=== PATIENT | female | born 2000 | race Caucasian/White ===

== ENCOUNTER 2021-01-16 12:39 | Emergency (ER) | payer SELFPAY ==
[~2021-01-16] VITALS: Ht 162.5 cm; Wt 64.3 kg
--- NOTE | 2021-01-16 12:51 | ED Abdominal Pain ---
General Chief Complaint: Abdominal/GI Problems Stated Complaint: ABD PAIN; NAUSEA History of Present Illness Date Seen by Provider: Jan 16, 2021 Time Seen by Provider: 12:46 Initial Comments 20-year-old female presents with some mild right-sided abdominal pain. Its more in the mid abdomen. It has been coming and going since yesterday evening. She is mildly nauseated. She reports she had a normal bowel movement last night. No vomiting. No fevers or chills. She denies any urinary symptoms. Pain does not radiate. Patient does report that it is close in time for her to start her menstrual cycle no other systemic complaints Allergies and Home Medications Allergies Coded Allergies: No Known Drug Allergies (Unverified , 01/16/21) Patient Home Medication List Home Medication List Reviewed: Yes Review of Systems Review of Systems Constitutional: No chills, No fever Cardiovascular: Denies Chest Pain, Denies Lightheadedness Gastrointestinal: Abdominal Pain (right sided ); Denies Diarrhea; Nausea; Denies Vomiting Genitourinary: Denies Burning, Denies Drainage, Denies Flank Pain Musculoskeletal: No back pain Skin: no symptoms reported Psychiatric/Neurological: No Symptoms Reported Endocrine: No Symptoms Reported Hematologic/Lymphatic: No Symptoms Reported Past Gueivys-Snwluh-Hyxxqb Hx Past Med/Social Hx: Reviewed Nursing Past Med/Soc Hx Physical Exam Vital Signs Vital Signs - First Documented 01/16/21 12:56 Temp 36.9 Pulse 109 Resp 16 B/P (MAP) 131/81 (98) Pulse Ox 100 O2 Delivery Room Air Capillary Refill : Height/Weight/BMI Height: '" Weight: lbs. oz. kg; BMI Method: General Appearance: no apparent distress Respiratory: lungs clear, normal breath sounds, no respiratory distress Cardiovascular: normal peripheral pulses, regular rate, rhythm Gastrointestinal: soft; No rebound; tenderness (right sided mid ) Extremities: normal range of motion, non-tender, normal inspection Back: no CVA tenderness Neurologic/Psychiatric: alert, normal mood/affect, oriented x 3 Skin: normal color Progress/Results/Core Measures Results/Orders Lab Results Laboratory Tests Test 01/16/21 12:45 01/16/21 12:58 Range/Units Urine Color YELLOW Urine Clarity SLT CLOUDY Urine pH 6.0 5-9 Urine Specific [place] >=1.030 1.016-1.022 Urine Protein NEGATIVE NEGATIVE Urine Glucose (UA) NEGATIVE NEGATIVE Urine Ketones TRACE H NEGATIVE Urine Nitrite NEGATIVE NEGATIVE Urine Bilirubin NEGATIVE NEGATIVE Urine Urobilinogen 1.0 < = 1.0 MG/DL Urine Leukocyte Esterase NEGATIVE NEGATIVE Urine RBC (Auto) 2+ H NEGATIVE Urine RBC 0-2 /HPF Urine WBC 2-5 /HPF Urine Squamous Epithelial Cells 5-10 /HPF Urine Crystals NONE /LPF Urine Bacteria FEW H /HPF Urine Casts NONE /LPF Urine Mucus MODERATE H /LPF Urine Culture Indicated YES Urine Test NEGATIVE NEGATIVE White Blood Count 7.8 4.3-11.0 10^3/uL Red Blood Count 3.97 L 4.35-5.85 10^6/uL Hemoglobin 12.4 11.5-16.0 G/DL Hematocrit 36 35-52 % Mean Corpuscular Volume 91 80-99 FL Mean Corpuscular Hemoglobin 31 25-34 PG Mean Corpuscular Hemoglobin Concent 34 32-36 G/DL Red Cell Distribution Width 12.0 10.0-14.5 % Platelet Count 217 130-400 10^3/uL Mean Platelet Volume 9.7 7.4-10.4 FL Immature Granulocyte % (Auto) 0 % Neutrophils (%) (Auto) 68 42-75 % Lymphocytes (%) (Auto) 22 12-44 % Monocytes (%) (Auto) 9 0-12 % Eosinophils (%) (Auto) 1 0-10 % Basophils (%) (Auto) 0 0-10 % Neutrophils # (Auto) 5.3 1.8-7.8 X 10^3 Lymphocytes # (Auto) 1.7 1.0-4.0 X 10^3 Monocytes # (Auto) 0.7 0.0-1.0 X 10^3 Eosinophils # (Auto) 0.4 H 0.0-0.3 10^3/uL Basophils # (Auto) 0.0 0.0-0.1 10^3/uL Immature Granulocyte # (Auto) 0.0 0.0-0.1 10^3/uL Sodium Level 138 135-145 MMOL/L Potassium Level 3.5 L 3.6-5.0 MMOL/L Chloride Level 105 98-107 MMOL/L Carbon Dioxide Level 24 21-32 MMOL/L Anion Gap 9 5-14 MMOL/L Blood Urea Nitrogen 17 7-18 MG/DL Creatinine 0.83 0.60-1.30 MG/DL Estimat Glomerular Filtration Rate > 60 BUN/Creatinine Ratio 20 Glucose Level 88 70-105 MG/DL Calcium Level 9.4 8.5-10.1 MG/DL Corrected Calcium 8.5-10.1 MG/DL Total Bilirubin 1.3 H 0.1-1.0 MG/DL Aspartate Amino Transf (AST/SGOT) 18 5-34 U/L Alanine Aminotransferase (ALT/SGPT) 9 0-55 U/L Alkaline Phosphatase 60 40-136 U/L C-Reactive Protein < 0.30 <0.50 MG/DL Total Protein 7.2 6.4-8.2 GM/DL Albumin 4.6 H 3.2-4.5 GM/DL My Orders Orders - GUERRERO,ZAMZAM L DO Cbc With Automated Diff (01/16/21 12:52) Comprehensive Metabolic Panel (01/16/21 12:52) Hcg,Qualitative Urine (01/16/21 12:52) Ua Culture If Indicated (01/16/21 12:52) Crp Fs (01/16/21 12:52) Abdomen (Kub) 1 View (01/16/21 13:05) Ondansetron Injection (Zofran Injectio (01/16/21 13:15) Urine Culture (01/16/21 12:45) Medications Given in ED Current Medications Medications Dose Ordered Sig/Chidi Route Start Time Stop Time Status Last Admin Dose Admin Ondansetron HCl 4 mg ONCE ONCE IVP 01/16/21 13:15 01/16/21 13:16 DC 01/16/21 13:24 4 MG Vital Signs/I&O 01/16/21 12:56 Temp 36.9 Pulse 109 Resp 16 B/P (MAP) 131/81 (98) Pulse Ox 100 O2 Delivery Room Air Progress Progress Note : Progress Note Patient with negative white count, negative CRP and very minimal tenderness on exam. Patient's symptoms are not very consistent with appendicitis or an acute interabdominal process. I did discuss CT with patient along with the risk and benefit. At this time she would prefer to defer the CT and will return to the ER if symptoms worsen or if she has any other concerns. Patient stable and discharged home. Diagnostic Imaging Diagonstic Imaging: Xray Plain Films/CT/US/NM/MRI: abdomen Comments ABDOMEN (KUB) 1 VIEW HISTORY: Abdominal pain TECHNIQUE: Frontal view of the abdomen COMPARISON: None FINDINGS: No distended loops of bowel were seen. There is no large collection of free air. No acute osseous abnormality is seen. There does appear to be transitional anatomy at the lumbosacral junction. IMPRESSION: 1. No findings of bowel obstruction or large collection of free air. Reviewed: Reviewed by Me, Reviewed/Discussed Departure Impression Primary Impression: Abdominal pain Qualified Codes: R10.31 - Right lower quadrant pain Disposition: HOME, SELF-CARE Condition: Stable Departure-Patient Inst. Referrals: NO,LOCAL PHYSICIAN (PCP/Family) Primary Care Physician Patient Instructions: Acute Pain, Adult, Nausea and Vomiting, Adult Add. Discharge Instructions: Return to the ER if your pain worsens or if you have any other concern Follow-up with your primary care provider next week or as needed All discharge instructions reviewed with patient and/or family. Voiced understanding. ZAMZAM GUERRERO DO Jan 16, 2021 12:51
[2021-01-16 12:56] VITALS: BP 131/81
[2021-01-16 13:08] LABS: HEMATOCRIT 36 % (35-52); HEMOGLOBIN 12.4 G/DL (11.5-16.0); MEAN CORPUSCULAR HEMOGLOBIN 31 PG (25-34); MEAN CORPUSCULAR VOLUME 91 FL (80-99); WHITE BLOOD COUNT 7.8 10^3/uL (4.3-11.0)
[2021-01-16 13:13] LABS: BASOPHILS % (AUTO) 0 % (0-10); EOSINOPHILS % (AUTO) 1 % (0-10); LYMPHOCYTES % (AUTO) 22 % (12-44); MEAN CORPUSCULAR HGB CONC 34 G/DL (32-36); MEAN PLATELET VOLUME 9.7 FL (7.4-10.4); MONOCYTES % (AUTO) 9 % (0-12); NEUTROPHILS % (AUTO) 68 % (42-75); PLATELET COUNT 217 10^3/uL (130-400)
[2021-01-16 13:14] LABS: EOSINOPHILS # (AUTO) 0.4 10^3/uL (0.0-0.3); LYMPHOCYTES # (AUTO) 1.7 X 10^3 (1.0-4.0); MONOCYTES # (AUTO) 0.7 X 10^3 (0.0-1.0); NEUTROPHILS # (AUTO) 5.3 X 10^3 (1.8-7.8)
[2021-01-16] MEDS ORDERED: ONDANSETRON 4 MG/2 ML (SDV) Z0FRAN IVP ONE (13:15)
[2021-01-16 13:23] LABS: CLARITY,URINE SLT CLOUDY; COLOR,URINE YELLOW
[2021-01-16 13:24] LABS: BACTERIA,URINE FEW /HPF; BILIRUBIN,URINE NEGATIVE (NEGATIVE); GLUCOSE, URINE (UA) NEGATIVE (NEGATIVE); KETONES,URINE TRACE (NEGATIVE); LEUKOCYTE ESTERASE ,URINE NEGATIVE (NEGATIVE); NITRITE,URINE NEGATIVE (NEGATIVE); PROTEIN,URINE NEGATIVE (NEGATIVE); RBC,URINE 0-2 /HPF
--- NOTE | 2021-01-16 13:34 | Diagnostic Imaging Report ---
HISTORY: Abdominal pain TECHNIQUE: Frontal view of the abdomen COMPARISON: None FINDINGS: No distended loops of bowel were seen. There is no large collection of free air. No acute osseous abnormality is seen. There does appear to be transitional anatomy at the lumbosacral junction. IMPRESSION: 1. No findings of bowel obstruction or large collection of free air. Dictated by: Dictated on workstation # [id number]
[2021-01-16 13:39] LABS: ALKALINE PHOSPHATASE 60 U/L (40-136); BILIRUBIN,TOTAL 1.3 MG/DL (0.1-1.0); BUN/CREATININE RATIO 20; CALCIUM 9.4 MG/DL (8.5-10.1); CARBON DIOXIDE 24 MMOL/L (21-32); CHLORIDE 105 MMOL/L (98-107); CREATININE SERUM 0.83 MG/DL (0.60-1.30); GFR ESTIMATED > 60; GLUCOSE 88 MG/DL (70-105); POTASSIUM 3.5 MMOL/L (3.6-5.0); SODIUM 138 MMOL/L (135-145)
[2021-01-16 13:40] LABS: ALANINE AMINOTRANSFERASE 9 U/L (0-55); ALBUMIN 4.6 GM/DL (3.2-4.5); TOTAL PROTEIN 7.2 GM/DL (6.4-8.2)
== END 2021-01-16 13:59 | disposition home or self-care (01) ==
LOC: ER FS 12:42
DX: R10.31 Right lower quadrant pain (principal)
CPT/HCPCS: 36415; 74018; 80053; 81000; 84703; 85025; 86141; 87088